=== PATIENT | male | born 1960 | race Caucasian/White ===

== ENCOUNTER 2017-09-27 23:30 | Inpatient (IN) | payer BC, OTHER ==
[~2017-09-27] VITALS: Ht 172.7 cm; Wt 81.6 kg
[~2017-09-27 23:30] MED LIST: ACYC800T PO; ALBU8.5H8 INH; ALPH1TAB9 PO; CYAN100071 PO; FOLI-65 PO; GABA-532 PO; HYDR-3895 PO; HYDR12.5 PO; PANT40TA4 PO
--- NOTE | 2017-09-28 00:15 | NUR ---
Pre-Admission Pt is a 57 year old male seen in intake, A&Ox4. Pt appears anxious and states, "I feel like I am all over the place". Upon assessment pt states he is here for alcohol and benzodiazepines. As assessment in intake continues, pt appears to respond to assessment questions quickly, then changes his responses when he is asked to clarify his previous response. Pt is a poor historian and states, "I just don't know if I remember". Vital signs taken, rules of the unit explained such as vital signs Q4H, wasting of controlled substances, kitchen access, and smoking patio privileges. Pt verbalized understanding. Will continue with admission process upon arrival on unit.
--- NOTE | 2017-09-28 00:24 | NUR ---
Admission Note Patient is a 57 year old male who presents to [facility] for medically supervised withdrawal from ETOH and Benzo. Body check done . Skin intact. Patient denies past medical history. Patient states he takes Hydralazine for his blood pressure but states he does not have Hypertension. No seizure history. He requested to be full code and on regular diet. 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 His family and couple of friends are his support system. When asked why he is seeking treatment. He verbalized " To detox and I need to be from Alcohol, Benzo's and Speed". Patient noted changing from topic to topic, unable to focus. Patient intoxicated. Patient is a poor historian. He state that he's here because "I have really important going on this week and I need to be completely focused ". Per patient he relapsed 60 days ago. "I work in [employer] and we had a big project." It was a slip not realizing when I picked up the drink . I could not believe that I did it, I could not stop. He states the reason for this is "complicated. "I know what to do but I just need to apply it . I need to find out within me. "It's what inside me that makes me want to drink and I want to find out why". It's baffling me". When demon comes into me , I'm hooked". " I am a real deal and real drunk ". I will as a junkie if I keep on doing this. "I'm scared of myself in what I do". Longest period of sobriety was 7 1/2 years in 2008. Substance History 1.Alcohol (Vodka and Whiskey )-started drinking at age 12 . Drinks 188 ml of Vodka and 950 ml of Whiskey daily for 60 days . Last drink was 900 ml of Sake and 90 ml of [place] prior to admission 09/27/17. 2.Ativan -started using at 15 years ago. He took 30 mg (30 tabs of 1 mg ) in 10 days for the past 60 days. . Last use was 09/19/17 , unable to recall amount 3.Xanax -unable to recall when he started using. Patient took 10-15 bars in the last 10-15 days for the past 60 days. . Unable to recall amount and last use. 4. Methamphetamine (inhalation) - unable to recall amount he uses but uses 3-4 x a week for the past 60 days. Last use was 09/27/17 , unable to recall amount. Treatment History Patient had been to [facility] 1.[facility] in [place] - 30 days-unable to recall when 2.[facility] -unable to recall the name - 60 days - unable to recall when 3.[facility] -Mar 2015, May 2015 and August 2015 His typical symptoms are distorted thinking and tremors. Patient presents flat affect, disheveled, unshaven, flushed face, smells of alcohol on breath, labile , blunt, headache, anxious, restless, difficulty concentrating, agitated and irritable upon admission. CIWA 11. No suicide history, no overdose, no 5150 and no blackouts. NO SI / HI. Patient smokes 1/2 pack . PCP: Dr. Charly Grimes. Patient oriented to surroundings and how to use call light. Educated on unit and smoking policies. Safety measures in place. Call light in reach. Will continue to monitor.
[2017-09-28] MEDS ORDERED: LORAZEPAM 1 MG TABLET PO PRN (00:45)
[2017-09-28] MEDS ORDERED: MAG HYDROX/AL HYDROX/SIMETH 30 ML LIQUID UDC PO PRN (00:45)
[2017-09-28] MEDS ORDERED: HYDROXYZINE PAMOATE 25 MG CAPSULE PO PRN (00:45)
[2017-09-28] MEDS ORDERED: LOPERAMIDE HCL 2 MG CAPSULE PO PRN ×2 (00:45)
[2017-09-28] MEDS ORDERED: MAGNESIUM HYDROXIDE 30 ML LIQUID UDC PO PRN (00:45)
[2017-09-28] MEDS ORDERED: DICYCLOMINE HCL 20 MG TABLET PO PRN (00:45)
[2017-09-28] MEDS ORDERED: MIRALAX 17 GM POWD.PACK PO PRN (00:45)
[2017-09-28] MEDS ORDERED: ONDANSETRON 4 MG/2 ML VIAL IM PRN (00:45)
[2017-09-28] MEDS ORDERED: ONDANSETRON ODT 4 MG TAB.RAPDIS SL PRN (00:45)
[2017-09-28] MEDS ORDERED: LORAZEPAM 2 MG/1 ML VIAL IM PRN (00:45)
[2017-09-28 01:15] LABS: BASOPHILS # (AUTO) 0.1 K/uL (0.0-8.0); EOSINOPHILS # (AUTO) 0.4 K/uL (0.0-0.7); EOSINOPHILS % (AUTO) 4.5 % (0.0-7.0); HEMATOCRIT 44.6 % (36.7-47.1); HEMOGLOBIN 15.3 g/dL (12.5-16.3); LYMPHOCYTES # (AUTO) 2.6 K/uL (20.0-40.0); LYMPHOCYTES % (AUTO) 26.5 % (20.5-51.5); MEAN CORPUSCULAR HEMOGLOBIN 32.6 uug (23.8-33.4); MEAN CORPUSCULAR HGB CONC 34 g/dL (32.5-36.3); MEAN CORPUSCULAR VOLUME 94.7 fL (73.0-96.2); MONOCYTES # (AUTO) 0.9 K/uL (2.0-10.0); MONOCYTES % (AUTO) 8.9 % (0.0-11.0); NEUTROPHILS # (AUTO) 5.8 K/uL (1.8-8.9); NEUTROPHILS % (AUTO) 59.1 % (38.5-71.5); PLATELET COUNT (AUTO) 246 K/uL (152-348); RED BLOOD CELL COUNT(AUTO) 4.71 MIL/uL (4.06-5.63); WHITE BLOOD COUNT (AUTO) 9.8 K/uL (3.6-10.2)
[2017-09-28 01:20] LABS: BILIRUBIN,TOTAL 0.3 mg/dL (0.2-1.0); CREATININE 0.8 mg/dL (0.6-1.3); MAGNESIUM 2.1 mg/dL (1.8-2.4); POTASSIUM 3.9 mmol/L (3.5-5.1); TOTAL PROTEIN, SERUM 7.5 g/dL (6.4-8.2)
[2017-09-28 01:35] LABS: THYROID STIMULATING HORMONE 2.931 mIU/mL (0.358-3.740)
[2017-09-28 01:45] LABS: *AMPHETAMINE, URINE POSITIVE (NEGATIVE); *BARBITURATE, URINE NEGATIVE (NEGATIVE); *CANNABINOID, URINE NEGATIVE (NEGATIVE); *COCCAINE, URINE NEGATIVE (NEGATIVE); *OPIATE, URINE NEGATIVE (NEGATIVE); *PHENCYCLIDINE SCREEN,URINE NEGATIVE (NEGATIVE)
[2017-09-28] MEDS: IBUPROFEN 600 MG TABLET PO PRN (03:40)
--- NOTE | 2017-09-28 03:40 | NUR ---
CIWA assessment Patient presents with anxiety, restless, difficulty concentrating, bilateral hand tremors, flushed face, sweating, agitated and irritable. CIWA 16
[2017-09-28] MEDS: LORAZEPAM 1 MG TABLET PO PRN ×2 (03:41→08:33)
--- NOTE | 2017-09-28 03:41 | NUR ---
PRN Ativan and Motrin administration Patient presents with anxiety, restless, difficulty concentrating, bilateral hand tremors, flushed face, sweating, agitated and irritable and headache . CIWA 16
--- NOTE | 2017-09-28 03:41 | NUR ---
HALINA Goldberg and Hollis re-assessment Patient still anxious, bilateral hand tremors, headache, restless, sweating, and agitated. Relaxation technique provided. BRITTANY 16. Addendum: 09/28/17 at 0644 by PEBBLES SCHULTZ LVN Error: time entered
[2017-09-28 04:00] VITALS: BP 131/91
[2017-09-28] MEDS: CLONIDINE HCL 0.1 MG TABLET PO PRN (04:40)
--- NOTE | 2017-09-28 04:40 | NUR ---
PRN Clonidine administration Patient presents with anxiety and sweating. Relaxation technique provided. Will continue to monitor.
--- NOTE | 2017-09-28 04:41 | NUR ---
PRN Ativan and Motrin re-assessment Patient still anxious, bilateral hand tremors, headache, restless, sweating, and agitated. Relaxation technique provided. CIWA 16.
--- NOTE | 2017-09-28 05:40 | NUR ---
PRN Clonidine assessment Patient in bed with eyes closed. Respiration even and unlabored. Will continue to monitor.
[2017-09-28] MEDS ORDERED: NAPH30DR5 OP (05:47)
[2017-09-28] MEDS ORDERED: [UNRECOGNIZED DRUG - OTHER] (05:47)
[2017-09-28] MEDS ORDERED: HYDR-4076 PO (05:47)
--- NOTE | 2017-09-28 07:28 | NUR ---
End of shift note Patient slept 3 hours. Fluid intake of 500 ml. voided x 1. No BM. Patient was given PRN Ativan and Motrin for anxiety, restless, difficulty concentrating, bilateral hand tremors, flushed face, sweating, agitated and irritable and headache . CIWA was 16. Patient was given PRN Clonidine for anxiety and sweating. Ethyl Alcohol 0.17 %. Safety measures in place. Call light in reach. Will continue to monitor.
--- NOTE | 2017-09-28 07:30 | NUR ---
START OF SHIFT Pt 57 y/o male admitted for etoh / bzo withdrawal. Alert and oriented to name, place, and time. Perrla. Skin warm and moist to touch. Respirations even and unlabored. Bilateral hand tremors. Appears disheveled and unkempt. Hair uncombed. Anxious and restless. Pressured speech. Unshaven. Irritable. Generalized discomfort. Stated, " I feel really anxious". Empty drink bottles scattered throughout the room. Encouraged to maintain hygiene. It was reported that pt slept for 3 hours last night. Pt is currently on prn ativan. It was reported that pt received prn ativan 2mg per MD order for ciwa =16 last night. Bed on lowest position with side rails x2 up for safety. Call light within reach.
[2017-09-28 08:00] VITALS: BP 121/84
--- NOTE | 2017-09-28 08:00 | NUR ---
CIWA ASSESSMENT ciwa=16. Anxious and restless. Pressured speech. Generalized discomfort. Bilateral hand tremors noted. Not able to lay still. Irritable. Complaints of perspiration. Difficulty sleeping.
[2017-09-28] MEDS: MULTIVITAMINS,THERAPEUTIC TABLET PO SCH (08:33)
[2017-09-28] MEDS: THIAMINE HCL 100 MG TABLET PO SCH (08:33)
[2017-09-28] MEDS: FOLIC ACID 1 MG TABLET PO SCH (08:33)
--- NOTE | 2017-09-28 08:33 | NUR ---
PRN ATIVAN ciwa=16. Anxious and restless. Pressured speech. Generalized discomfort. Bilateral hand tremors noted. Not able to lay still. Irritable. Complaints of perspiration. Difficulty sleeping. Ativan 2mg po prn per MD order given and tolerated well.
--- NOTE | 2017-09-28 09:33 | NUR ---
PRN JOSE MCPHERSON CIWA=12. Bilateral hand tremors. Still anxious. Pressured speech. Not able to sit still. Irritable. Anxious and restless. Generalized discomfort.
[2017-09-28] MEDS ORDERED: 6 DAY PHENOBARBITAL TAPER -SERENITY PROTOCOL PO PRN (11:30)
[2017-09-28 12:00] VITALS: BP 133/83
--- NOTE | 2017-09-28 12:00 | NUR ---
CIWA ASSESSMENT ciwa=12. Pressured speech noted. Not able to to lay still in bed. Bilateral hand tremors noted. Anxious and restless. Pt states," I feel uneasy". Generalized discomfort and complaints of episodes of perspiration.
[2017-09-28] MEDS: PHENOBARBITAL 60 MG TABLET PO SCH ×3 (12:32→20:25)
[2017-09-28] MEDS: HYDROCHLOROTHIAZIDE 12.5 MG CAPSULE PO SCH (12:32)
[2017-09-28 16:00] VITALS: BP 126/78
--- NOTE | 2017-09-28 16:00 | NUR ---
CIWA ASSESSMENT ciwa=15. Anxious and restless. Bilateral hand tremors noted. Pressured speech. Not able to lay still in bed. Irritable. Perspiration on forehead noted. Complaints of generalized discomfort.
--- NOTE | 2017-09-28 18:44 | NUR ---
END OF SHIFT Pt 57 y/o male admitted for etoh / bzo withdrawal. Alert and oriented to name, place, and time. Perrla. Skin warm and moist to touch. Respirations even and unlabored. Bilateral hand tremors noted. Appears disheveled and unkempt. Unshaven. Dirt under fingernails of both hands. Anxious and restless. Not able to sit still. Irritable. Clothes and empty drink bottles scattered throughout the room. Encouraged to maintain hygiene. Isolative to room with no peer interaction. Pt was seen by MD today. Pt is on 5 phenobarbital and is on day 1. Last ciwa=15@1600. Ativan 2mg po prn per MD order given this morning for ciwa=16. Bed on lowest position with side rails x2 up for safety. Call light within reach.
[2017-09-28 20:00] VITALS: BP 129/83
--- NOTE | 2017-09-28 20:00 | NUR ---
Start of Shift Patient is AAOx4, verbalized increasing anxiety and appears flushed. With tremors noted. Patient with racing thoughts and is tremulous. Patient verbalized, "I am waiting for the night meds tonight. That could definitely make me feel better." Patient also noted to be unkempt, encouraged patient to take shower in the morning. Also, educated patient re medications, plan of care and Progressive Muscle Relaxation. Fall, universal, seizure and safety prec in place. Call light within reach. Latest CIWA=12. Will continue to monitor.
[2017-09-29] VITALS: BP 125/71
--- NOTE | 2017-09-29 | NUR ---
BERTANV deferred Patient in bed with eyes closed. Respiration even and unlabored. Will continue to monitor. Addendum: 09/30/17 at 0349 by PEBBLES SCHULTZ LVN error: wrong date posted
[2017-09-29 04:00] VITALS: BP 127/66
[2017-09-29 05:06] LABS: HEPATITIS B SURFACE AG Negative (Negative)
--- NOTE | 2017-09-29 07:05 | NUR ---
End of Shift Patient asleep on bed, arousable and is AAOx4. Patient verbalized having feelings of "increasing anxiety". With tremors noted. Patient wanted to go back to sleep and "rest some more." Patient noted to be melancholic and in depressed. Patient with strong body odor, encouraged to take a shower this morning. Fall, universal, seizure and safety prec in place. Call light within reach. Latest CIWA=8, slept for 7 hours. Endorsed to AM shift nurse for continuity of care.
--- NOTE | 2017-09-29 07:30 | NUR ---
START OF SHIFT Pt 57 y/o male admitted for eoth/ bzo withdrawal. Received in room awake sitting on bed drinking coffee. Alert and oriented to name, place, and time. Perrla. Skin warm and moist to touch. Respirations even and unlabored. Bilateral hand tremors noted. Appears disheveled and unkempt. Empty drink bottles scattered throughout the room. Anxious and restless. Not able to sit still. Irritable. Pressured speech noted. Generalized discomfort. It was reported that pt slept for 7 hours last night. Last ciwa=8 @2000. Pt is on a 6 day phenobarbital and is on day 2. Bed on lowest position with side rails x2 up for safety. Call light within reach.
[2017-09-29 08:00] VITALS: BP 134/89
--- NOTE | 2017-09-29 08:00 | NUR ---
CIWA ASSESSMENT ciwa=12. Anxious and restless. Fidgety. Not able to sit still. Irritable. Bilateral hand tremors noted. Generalized discomfort.
[2017-09-29] MEDS: PHENOBARBITAL 60 MG TABLET PO SCH ×3 (08:16→20:09)
[2017-09-29] MEDS: MULTIVITAMINS,THERAPEUTIC TABLET PO SCH (08:16)
[2017-09-29] MEDS: FOLIC ACID 1 MG TABLET PO SCH (08:16)
[2017-09-29] MEDS: THIAMINE HCL 100 MG TABLET PO SCH (08:16)
[2017-09-29] MEDS: HYDROCHLOROTHIAZIDE 12.5 MG CAPSULE PO SCH (08:16)
[2017-09-29] MEDS ORDERED: TUBERCULIN,PURIF.PROT.DERIV. 5 TU/0.1 ML TEST ID ONE (09:00)
[2017-09-29 12:00] VITALS: BP 126/89
--- NOTE | 2017-09-29 12:00 | NUR ---
CIWA ASSESSMENT ciwa=12. Anxious. Restless. Irritable. Pressured speech. Bilateral hand tremors notes. Not able to sit still. fidgety. Generalized discomfort. Complaints of chills/ sweat episodes.
[2017-09-29 16:00] VITALS: BP 138/71
--- NOTE | 2017-09-29 16:00 | NUR ---
CIWA ASSESSMENT ciwa=12. Restless. Anxious. Pressured speech. Bilateral hand tremors noted. Fidgety. Generalized discomfort. States," I feel anxious". Irritable.
--- NOTE | 2017-09-29 18:40 | NUR ---
END OF SHIFT Pt 57 y/o male admitted for etoh / bzo withdrawal. Alert and oriented to name, place, and time. Perrla. Skin warm and moist to touch. Respirations even and unlabored. Bilateral hand tremors noted. Appears disheveled and unkempt. Empty drink bottles scattered throughout the room. Dirt under fingernails of both hands noted. Anxious and restless. Not able to lay still. Fidgety. Pt stated, " I always feel anxious". Pressured speech noted. Irritable. Generalized discomfort. Encouraged to maintain hygiene. Observed mostly isolative to room throughout the day with minimal peer interaction. Was seen by MD today. Medication compliant. Attended group activity. Pt is on a 6 day Phenobarbital taper and is on day 2. Last Ciwa= 12@1600. Bed on lowest position with side rails x2 up for safety. Call light within reach.
--- NOTE | 2017-09-29 19:45 | NUR ---
Start of shift note Received report from day shift Nurse. Patient is a 57 year old male admitted for ETOH/Benzo withdrawal. Patient is on Phenobarbital taper. Patient did not require PRN medication. Last CIWA 12. Patient in the room, resting. Patient alert and oriented x 4. Patient presents with flat affect , depressed mood, unshaven, flushed face, disheveled, anxious, restless, irritable, sweating, headache , muscle aches and bilateral hand tremors. Relaxation technique provided. Safety measures in place. Call light in reach. Will continue to monitor.
[2017-09-29 20:00] VITALS: BP 138/88
--- NOTE | 2017-09-29 20:00 | NUR ---
CIWA assessment Patient presents with flushed face, anxious, restless, irritable, sweating, headache , muscle aches and bilateral hand tremors. Relaxation technique provided. CIWA 12
[2017-09-29] MEDS: IBUPROFEN 600 MG TABLET PO PRN (20:09)
--- NOTE | 2017-09-29 20:09 | NUR ---
PRN Motrin administration Patient c/o headache and muscle aches. Will monitor for effectiveness
--- NOTE | 2017-09-29 21:09 | NUR ---
PRN Motrin administration Patient states Motrin helpful and effective. Will continue to monitor Addendum: 09/30/17 at 0351 by PEBBLES SCHULTZ LVN re-assessment
[2017-09-30] VITALS: BP 130/78
--- NOTE | 2017-09-30 | NUR ---
CIWA deferred Patient in bed with eyes closed. Respiration even and unlabored. Will continue to monitor
--- NOTE | 2017-09-30 03:44 | NUR ---
CIWA assessment Patient present with anxiety and restlessness. CIWA 9. Relaxation technique provided.
[2017-09-30 04:00] VITALS: BP 136/91
--- NOTE | 2017-09-30 04:00 | NUR ---
CIWA deferred Patient in bed with eyes closed. Respiration even and unlabored. Will continue to monitor.
--- NOTE | 2017-09-30 06:55 | NUR ---
End of shift note Patient slept 6 hours. Fluid intake 1,850 . Voided x 3. BM x 1. Monitored patient throughout shift. Scheduled medication and Phenobarbital taper given as ordered, tolerated well and no adverse reaction. Patient presented with anxiety, restlessness , irritability, sweating, headache , muscle aches, bilateral hand tremors. CIWA was 12. Patient was given PRN Motrin at 2008. Patient woke up at 0344 and went down to smoke. Patient anxious and restless, relaxation technique provided. CIWA was 9. After smoking , patient went back to sleep. Safety measures in place. Call light in reach. Will continue to monitor. Last CIWA 9.
--- NOTE | 2017-09-30 07:30 | NUR ---
Start of shift note; Received report from night nurse. Patient is a 57 year old male admitted on 09/27/17 for ETOH Withdrawal. Patient was placed on 6 day Phenobarbital taper. Patient is AOx4, patient appears older than age stated, poor eye contact noted, patient has difficulty concentrating, easily distracted. Patient appears anxious, agitated, complaining of muscle aches, abdominal cramps and intermitted sweats, tremors noted. Educated patient regarding the importance of compliance to treatment and medication regime, verbalized understanding. Encouraged patient to participate in group activities and therapies and develop new coping skills. All safety measures secured. Will continue to monitor patient.
[2017-09-30 08:00] VITALS: BP 120/90
--- NOTE | 2017-09-30 08:00 | NUR ---
CIWA assessment; Patient is AOx4, patient appears older than age stated, poor eye contact noted, patient has difficulty concentrating, easily distracted. Patient appears anxious, agitated, complaining of muscle aches, abdominal cramps and intermitted sweats, tremors noted. Patient's current CIWA is 12.
[2017-09-30] MEDS: MULTIVITAMINS,THERAPEUTIC TABLET PO SCH (08:28)
[2017-09-30] MEDS: THIAMINE HCL 100 MG TABLET PO SCH (08:28)
[2017-09-30] MEDS: HYDROCHLOROTHIAZIDE 12.5 MG CAPSULE PO SCH (08:28)
[2017-09-30] MEDS: PHENOBARBITAL 60 MG TABLET PO SCH ×4 (08:29→20:48)
[2017-09-30] MEDS: FOLIC ACID 1 MG TABLET PO SCH (08:29)
[2017-09-30 12:00] VITALS: BP 122/89
--- NOTE | 2017-09-30 12:00 | NUR ---
CIWA assessment; Patient is AOx4, patient appears older than age stated, poor eye contact noted, patient has difficulty concentrating, easily distracted. Patient continues to show s/s of withdrawals, current CIWA of 12 manifested by anxiety, agitation, complaining of muscle aches, abdominal cramps and intermitted sweats, tremors noted. Patient received Phenobarbital to help reduce withdrawal symptoms.
[2017-09-30] MEDS: IBUPROFEN 600 MG TABLET PO PRN ×2 (13:51→20:48)
--- NOTE | 2017-09-30 13:57 | NUR ---
PRN medication Patient is complaining of generalized pain rated 6/10 on adult pain scale. PRN Motrin 600mg PO given for pain. Will continue to monitor patient for effectiveness of medication.
--- NOTE | 2017-09-30 14:57 | NUR ---
Re-assessment; Patient denies pain at this time, PRN medication noted to be effective.
[2017-09-30 16:00] VITALS: BP 138/92
--- NOTE | 2017-09-30 16:00 | NUR ---
CIWA assessment; Patient is AOx4, patient continues to show s/s of withdrawals, current CIWA of 10 manifested by anxiety, agitation, complaining of muscle aches, abdominal cramps and intermitted sweats, tremors noted. patient appears older than age stated, poor eye contact noted, patient has difficulty concentrating, easily distracted. Medications were effective in reducing withdrawal symptoms.
--- NOTE | 2017-09-30 18:02 | NUR ---
End of shift note; Patient is AOX4, presented with anxiety, agitation, complaining of muscle aches, abdominal cramps and intermittent sweats, tremors noted. Patient's last CIWA score is 10 at 1600. Patient remained compliant with treatment plan and medication regime. Medications were effective in reducing withdrawal symptoms. Patient participated in group activities and therapies. Patient received PRN Motrin for generalized pain noted to be effective. Patient is on fall and seizure precaution. All safety measures secured. Met all needs.
--- NOTE | 2017-09-30 19:30 | NUR ---
Start of Shift Patient Received. Per endorsement, Patient continues on 6 day Phenobarbital taper. He is noted to be compliant with group and social activities. He received PRN Motrin for increased body aches with medication noted to be effective. Last noted CIWA 10. Upon rounds, patient is noted in his room with eyes closed but easily aroused to verbal stimuli. No signs and symptoms of withdrawal verbalized. All needs attended to promptly. Will continue plan of care as ordered.
[2017-09-30 20:28] VITALS: BP_SYST 140; BP_SYST 148; BP_DIAS 102; BP_DIAS 91
[2017-09-30] MEDS: diphenhydrAMINE 50 MG CAPSULE PO PRN (20:48)
--- NOTE | 2017-09-30 20:50 | NUR ---
PRN Medication Administration Patient is noted verbalizing increased pain 5/10 due to headache. He is also verbalizing inability of falling asleep. PRN Motrin and Benadryl administered. Will continue to monitor.
--- NOTE | 2017-09-30 21:50 | NUR ---
PRN Medication Reassessment Patient is noted in bed with eyes closed. Breathing even and non labored. No signs of restlessness or discomfort. No facial grimacing noted. PRN Motrin and Benadryl noted to be effective. Will continue to monitor.
[2017-10-01 00:04] VITALS: BP 121/76
--- NOTE | 2017-10-01 04:17 | NUR ---
Vitals Patient is noted in bed with eyes closed. Breathing even and non labored. Patient noted to refuse vitals. Respirations noted to be 16. CIWA not able to be completed as per order. Will continue to monitor.
--- NOTE | 2017-10-01 07:13 | NUR ---
End of Shift Patient is noted in bed with eyes closed. Breathing even and non labored. Patient continues on a 6 day Phenobarbital taper. Patient was medicated for pain due to headache with Motrin and medication noted to be effective. He was also medicated for inability of falling asleep with Benadryl with medication noted to be effective. Patient noted to sleep a total of 8 hours. Last noted CIWA 4. All needs attended to promptly. Will endorse to continue plan of care as ordered.
[2017-10-01 08:00] VITALS: BP 130/91
--- NOTE | 2017-10-01 08:00 | NUR ---
CIWA SCORE 4 Pt is c/o anxiety, agitated and sweats but states he is able to cope with anxiety level. CIWA score at this time is 4. Will continue to monitor.
--- NOTE | 2017-10-01 08:04 | NUR ---
START OF SHIFT Pt is a 57 yr old male, AA&Ox4. Pt was admitted on 09/27/17 for ETOH/Benzo withdrawal and is on 6 day Phenobarbital taper as ordered. Received report from shift mechanic nurse. Pt received Benadryl PRN and Motrin PRN during the night. Medication was effective. Last CIWA score was 4. Pt is currently awake states "I feel better", and is resting in bed. Skin is intact, warm and moist to touch. Encouraged increase fluid intake for hydration. Safety precautions observed. Call light is within reach. will continue to monitor.
[2017-10-01] MEDS: PHENOBARBITAL 60 MG TABLET PO SCH ×3 (08:42→20:43)
[2017-10-01] MEDS: THIAMINE HCL 100 MG TABLET PO SCH (08:42)
[2017-10-01] MEDS: FOLIC ACID 1 MG TABLET PO SCH (08:42)
[2017-10-01] MEDS: HYDROCHLOROTHIAZIDE 12.5 MG CAPSULE PO SCH (08:42)
[2017-10-01] MEDS: MULTIVITAMINS,THERAPEUTIC TABLET PO SCH (08:42)
[2017-10-01 12:00] VITALS: BP 150/93
[2017-10-01 16:00] VITALS: BP 131/82
[2017-10-01] MEDS: IBUPROFEN 600 MG TABLET PO PRN (17:51)
--- NOTE | 2017-10-01 17:53 | NUR ---
PRN GIVEN Pt c/o of a mild headache 05/22. Motrin 600mg PO PRN was given as ordered, encouraged increase fluid intake. Will continue to monitor.
--- NOTE | 2017-10-01 19:00 | NUR ---
END OF SHIFT Pt is a 57 yr old male, AA&Ox4. Pt has been cooperative with medication regimen and plan of care. Pt was observed attending group therapy that was offered during the day. Pt was c/o anxiety, agitation, sweats but states Phenobarbital has been effective to reduce the withdrawal symptoms. Pt states he is able to use coping mechanism to help with s/s of withdrawal. Skin is intact warm and moist to touch. Pt received Motrin PRN for headache. Medication was effective. Last CIWA score was 6 at 1600. Safety precautions observed. Call light is within reach. Endorsed to weight shifter nurse to continue with care.
[2017-10-01 20:00] VITALS: BP 128/81
--- NOTE | 2017-10-01 20:00 | NUR ---
Start of Shift Patient is AAOx4, appears flushed and with tremors noted. Patient noted to have increasing anxiety and is melancholic and prefers to be by himself. Patient also noted to be unkempt. Patient verbalized feeling better as the day progresses. Educated patient regarding medications, plan of care and relaxation techniques. Fall, universal, seizure and safety prec in place. Call light within reach. Latest CIWA=7. Will continue to monitor.
[2017-10-01] MEDS: ACETAMINOPHEN 325 MG TABLET PO PRN (21:10)
--- NOTE | 2017-10-01 21:10 | NUR ---
PRN Tylenol Pt c/o [id number]. Administered Tylenol 650 mg PO PRN. Will reassess.
--- NOTE | 2017-10-01 22:10 | NUR ---
Tylenol reassess Patient verbalized that headache pain level was reduced to 2/10.
[2017-10-02] VITALS: BP 130/74
[2017-10-02 04:00] VITALS: BP 127/81
--- NOTE | 2017-10-02 07:15 | NUR ---
End of Shift Patient c/o intermittent headache the whole shift, controlled by prn medication. Patient continues to be isolative and melancholic and with tremors. Patient on last day of Phenobarbital taper today. Patient verbalized that he is getting better everyday and his resolve to maintain sobriety is stronger. Fall, universal, seizure and safety prec in place. Call light within reach. Latest CIWA=6, slept for 6 hours. Endorsed to AM shift nurse for continuity of care.
--- NOTE | 2017-10-02 07:45 | NUR ---
START OF SHIFT Pt is a 57 yr old male, AA&Ox4. Pt was admitted on 09/27/17 for ETOH/Benzo withdrawal and is on 6 day Phenobarbital taper as ordered. Received report from maintenance technician 2nd shift nurse. Pt received Tylenol PRN during the night. Medication was effective. Last CIWA score was 6. Pt slept for 6 hrs during the night. Pt is currently awake and appears anxious at this time. Pt was insisting on going to smoke in the patio. Skin is intact, warm and moist to touch. Encouraged increase fluid intake for hydration. Safety precautions observed. Call light is within reach. Will continue to monitor.
[2017-10-02 08:07] VITALS: BP 128/91
[2017-10-02] MEDS: PHENOBARBITAL 60 MG TABLET PO SCH ×2 (08:58→20:20)
[2017-10-02] MEDS: MULTIVITAMINS,THERAPEUTIC TABLET PO SCH (08:58)
[2017-10-02] MEDS: HYDROCHLOROTHIAZIDE 12.5 MG CAPSULE PO SCH (08:58)
[2017-10-02] MEDS: FOLIC ACID 1 MG TABLET PO SCH (08:58)
[2017-10-02] MEDS: THIAMINE HCL 100 MG TABLET PO SCH (08:58)
--- NOTE | 2017-10-02 09:00 | NUR ---
CIWA SCORE 5 Pt states of feeling "like himself again" and states he just has anxiety. Skin is warm and moist to touch. CIWA score at this time is 5. Phenobarbital 30mg PO as scheduled at 0900 was given. Medication was miguel ángel well. Will continue to monitor.
[2017-10-02] MEDS: IBUPROFEN 600 MG TABLET PO PRN ×2 (11:03→20:20)
--- NOTE | 2017-10-02 11:04 | NUR ---
PRN GIVEN Pt is c/o headache 06/21. Motrin 600mg PO PRN was given as ordered. Encouraged increase fluid intake. will continue to monitor.
[2017-10-02 12:00] VITALS: BP 119/83
--- NOTE | 2017-10-02 12:04 | NUR ---
PRN RE-ASSESSMENT/CIWA SCORE 8 Motrin 600mg PO PRN was mildly effective. Pt continues to c/o headache 04/21. Pt also states of feeling anxious. Fine tremors are felt. CIWA score was 8. Encouraged increase fluid intake. Will continue to monitor.
[2017-10-02] MEDS: ACETAMINOPHEN 325 MG TABLET PO PRN (14:18)
--- NOTE | 2017-10-02 14:18 | NUR ---
PRN GIVEN Pt continues to c/o headache 05/22 and requested for Tylenol. Tylenol 650mg PO PRN was given as ordered, encouraged increase fluid intake. will continue to monitor.
--- NOTE | 2017-10-02 15:18 | NUR ---
PRN ASSESSMENT Tylenol PRN was effective. pt denies any headache at this time. Encouraged increase fluid intake. Will continue to monitor.
[2017-10-02 16:00] VITALS: BP 138/86
--- NOTE | 2017-10-02 18:58 | NUR ---
END OF SHIFT Pt is a 57 yr old male, AA&Ox4. Pt has been cooperative with medication regimen and plan of care. Pt was observed attending group therapy that was offered during the day. Pt was noted with anxiety m/b difficulty staying still. Pt was c/o sweats and headache throughout the day. Pt received Motrin 600mg PO PRN and Tylenol 650mg PO PRN for pain mgt. Medication was effective. Skin is intact, warm and moist to touch. Last CIWA score was 6 at 1600. Pt was encouraged to drink plenty of fluid for hydration. Safety precautions observed. Call light is within reach. Endorsed to cnc machinist 2nd shift nurse to continue with care.
[2017-10-02 20:00] VITALS: BP 138/90
--- NOTE | 2017-10-02 20:00 | NUR ---
Start of Shift Patient is AAOx4, noted to be melancholic and isolative. Pt observed to have tremors. Per patient, ever since I started detoxing Im having headache everyday. Instructed patient to increase oral fluid intake to prevent dehydration. PRN medications will be administered. Patient c/o increasing anxiety. Educated patient regarding medications, plan of care and relaxation techniques. Fall, universal, seizure and safety prec in place. Call light within reach. Latest CIWA=8. Will continue to monitor.
[2017-10-02] MEDS: diphenhydrAMINE 50 MG CAPSULE PO PRN (20:20)
[2017-10-02] MEDS: CLONIDINE HCL 0.1 MG TABLET PO PRN (20:21)
--- NOTE | 2017-10-02 20:21 | NUR ---
PRN Motrin, Clonidine and Benadryl Patient c/o headache=6/10, increasing anxiety and agitation and inability to sleep. Administered Motrin 600 mg PO PRN, Clonidine 0.1 mg PO PRN and Benadryl 50 mg PO PRN, respectively. Will reassess.
--- NOTE | 2017-10-02 21:30 | NUR ---
Motrin, Clonidine and Benadryl reassess Per patient, headache pain level=2-3/10, anxiety level has been reduced. EQ=648/77, pulse=81 and patient verbalized feeling sleepy.
[2017-10-03] VITALS: BP 127/82
[2017-10-03 04:00] VITALS: BP 117/68
--- NOTE | 2017-10-03 07:09 | NUR ---
End of Shift Patient received PRN Motrin and Clonidine during the shift, continues to have intermittent headache, vital signs are within normal limits. Patient continues to be isolative and melancholic and with tremors. Patient on last day of Phenobarbital taper today. Fall, universal, seizure and safety prec in place. Call light within reach. Latest CIWA=6, slept for 8 hours. Endorsed to AM shift nurse for continuity of care.
[2017-10-03 08:00] VITALS: BP 125/82
--- NOTE | 2017-10-03 08:00 | NUR ---
Start of Shift Notes/CIWA Assessment: Received patient in his room. Alert, awake and oriented x 4. Denies AV hallucinations. Denies S/I or H/I noted. Appears flushed, disheveled, unkempt and unshaven. He is noted with poor regards to personal hygiene. Noted with dirty linen on the floor and clothes on bedside table. Encouraged maintenance of personal hygiene and space. He is noted with gross tremors and with sweaty palms. He verbalizes "My anxiety is there, the discharge stuff is getting me nervous." Redirection and reassurance provided. He is also noted with increased emotional amplitude. CIWA 14 upon assessment. Patient is a 57 year old male admitted for ETOH/BZO withdrawal who was placed on a Phenobarbital taper as ordered with last dose to be give this AM. Per night report, patient was given Motrin and Clonidine during the night. Slept for a total of 8 hours. Last CIWA 6. Educated patient on his current plan of care for the day and his medication regimen. Encouraged oral fluid intake and encouraged group participation to learn new skils to prevent relapse. Will continue to monitor.
[2017-10-03] MEDS: THIAMINE HCL 100 MG TABLET PO SCH (08:51)
[2017-10-03] MEDS: MULTIVITAMINS,THERAPEUTIC TABLET PO SCH (08:52)
[2017-10-03] MEDS: HYDROCHLOROTHIAZIDE 12.5 MG CAPSULE PO SCH (08:52)
[2017-10-03] MEDS: FOLIC ACID 1 MG TABLET PO SCH (08:52)
[2017-10-03] MEDS ORDERED: PHENOBARBITAL 60 MG TABLET PO SCH (09:00)
[2017-10-03 12:00] VITALS: BP 131/80
--- NOTE | 2017-10-03 12:19 | NUR ---
CIWA Assessment: CIWA 11, patient continues to present with anxiety, agitation, gross tremors, intermittent perspiration and difficulty concentrating. Support provided. Redirected as needed. Encouraged patient to attend group and activities. Will monitor closely.
[2017-10-03 16:00] VITALS: BP 137/87
--- NOTE | 2017-10-03 16:35 | NUR ---
CIWA Assessment: CIWA 10, patient continues to present with gross tremors, anxiety, agitation and facial flushing. Oral fluids encouraged.
--- NOTE | 2017-10-03 19:02 | NUR ---
End of Shift Notes: Patient completed his Phenobarbital taper today as ordered. No adverse reactions noted. VS monitored closely. No significant abnormalities noted. Withdrawal symptoms were closely monitored. Initial CIWA 14, patient presented with anxiety, agitation, facial flushing, gross tremors, difficulty concentrating, fatigue, intermittent perspiration and restlessness. Last CIWA 10. Patient verbalizes that Phenobarbital has been effective in reducing his withdrawal symptoms. Compliant with care and treatment. Participated in group and activities. All needs met and attended. Will continue to monitor.
--- NOTE | 2017-10-03 19:12 | NUR ---
Start of shift note Received report from day shift nurse. Pt is a 57 yo male, A+ox4, presenting to [facility] for medically supervised ETOH/Benzo withdrawal. Pt was also using Methamphetamines. Pt noted with restlessness, agitation, and anxiety. Pt has HX of Seizure which will be monitored during shift. Pt is has completed 6 day Phenobarbital taper, tolerated well, and is due for discharge tomorrow. Respirations even and unlabored. Will continue to monitor.
[2017-10-03 20:10] VITALS: BP 132/78
--- NOTE | 2017-10-03 20:10 | NUR ---
CIWA Assessment CIWA: 6. Pt noted with fine tremors, sweat on brow, anxiety, and agitation. Respirations even and unlabored. Will continue to monitor.
[2017-10-03] MEDS ORDERED: DIPH50CA37 PO (20:13)
[2017-10-03] MEDS ORDERED: IBUP-1955 PO (20:13)
[2017-10-03] MEDS ORDERED: CLON0.1T14 PO (20:13)
--- NOTE | 2017-10-04 00:55 | NUR ---
V/S refused and CIWA Assessment deferred for sleep. Respirations even and unlabored. Will continue to monitor.
--- NOTE | 2017-10-04 04:54 | NUR ---
V/S refused and CIWA Assessment deferred for sleep. Respirations even and unlabored. Will continue to monitor.
--- NOTE | 2017-10-04 07:00 | NUR ---
End of shift note Pt was continuously noted with restlessness, anxiety, and agitation. Pt remained in room for majority of shift except to go smoke on smoking patio and to get food from kitchen. Pt remained cooperative and compliant with all aspects of treatment. Pt was not given any PRN medications during shift. Pt has completed 6 day Phenobarbital taper, tolerated well, and is due for discharge today. Pt slept for a total of 7 HRS. Last CIWA: 6 @2009. Respirations even and unlabored. Will endorse to day shift nurse.
[2017-10-04 08:00] VITALS: BP 138/87
--- NOTE | 2017-10-04 08:00 | NUR ---
Start of Shift Notes/CIWA Assessment: Patient is in the hallway by his room. Alert, awake and oriented x 4. Denies AV hallucinations. Denies S/I or H/I noted. Appears flushed,, unkempt and unshaven. He is noted with poor regards to personal hygiene. Encouraged maintenance of personal hygiene and space. He is noted with gross tremors and verbalizes intermittent diaphoresis. He verbalizes "Am I suppposed to stay in my room if I am being discharged? What do I do now?" Redirection and reassurance provided. He is also noted with increased emotional amplitude. CIWA 14 upon assessment. Educated patient on the discharge process with help. Patient is a 57 year old male admitted for ETOH/BZO withdrawal who completed Phenobarbital taper successfully. Per night report, patient slept for a total of 7 hours. Last CIWA 6. Educated patient on his current plan of care for the day and his medication regimen. Encouraged oral fluid intake. Will continue to monitor.
[2017-10-04] MEDS: MULTIVITAMINS,THERAPEUTIC TABLET PO SCH (08:34)
[2017-10-04] MEDS: HYDROCHLOROTHIAZIDE 12.5 MG CAPSULE PO SCH (08:34)
[2017-10-04] MEDS: FOLIC ACID 1 MG TABLET PO SCH (08:34)
[2017-10-04] MEDS: THIAMINE HCL 100 MG TABLET PO SCH (08:34)
--- NOTE | 2017-10-04 09:36 | NUR ---
Discharge: Patient education provided regarding his discharge instructions. Discussed patient's after plan of care. All necessary dc paperwork were signed. All clothing, medications and valuables were returned to the patient. Last CIWA 6 at 0800.VS stable. All 0900 meds given. [employer] cabinets checked. Cassette checked. Picked up by [facility] to be transported to [facility]. Will continue to monitor.
== END 2017-10-04 09:36 | disposition home or self-care (01) | DRG 895 ==
LOC: SRC 23:30
PROVIDERS: ADMIT Family Medicine Addiction Medicine; ATTEND Family Medicine Addiction Medicine
PROC: HZ2ZZZZ Detoxification Services for Substance Abuse Treatment (ICD-10-PCS; principal; 2017-09-27)
PROC: HZ41ZZZ Group Counseling for Substance Abuse Treatment, Behavioral (ICD-10-PCS; 2017-09-29)
DX: F10.230 Alcohol dependence with withdrawal, uncomplicated (principal); F13.239 Sedative, hypnotic or anxiolytic dependence with withdrawal, unspecified; Y90.6 Blood alcohol level of 120-199 mg/100 ml; F41.9 Anxiety disorder, unspecified; Z82.3 Family history of stroke; Z80.8 Family history of malignant neoplasm of other organs or systems; I10 Essential (primary) hypertension; F32.9 Major depressive disorder, single episode, unspecified; F15.90 Other stimulant use, unspecified, uncomplicated; F17.210 Nicotine dependence, cigarettes, uncomplicated
CPT/HCPCS: 36415; 70030-TC; 80307; 80324; 80346; 83690; 83735; 84443; 85025; 86580; 86592; 86705; 86803; 87340; 87806; G0480; J8499; Q0163